=== PATIENT | female | born 1960 | race Hispanic/Latino ===

== ENCOUNTER 2018-10-01 08:27 | Outpatient (CLI) | payer BC, OTHER ==
--- NOTE | 2018-10-02 11:47 | Magnetic Resonance Report ---
BILATERAL BREAST MR WITHOUT AND WITH GADOLINIUM INDICATION: High risk for breast cancer. COMPARISONS: 01/07/2018 mammogram TECHNIQUE: Axial 1.0 mm T1 without, axial high-resolution 2.0 mm T2 and axial 1.0 mm dynamic vibrant high-resolution postcontrast T1 fat saturation sequences on a 1.5 [place] magnet. The examination was p erformed with an 8-channel dedicated [place] breast coil. Post-processing with CAD and subtraction was performed on an [employer] workstation. 14.0 cc of MultiHance was injected without incident for the c ontrast portion of the exam. Consent was obtained prior to the administration of the contrast. FINDINGS: RIGHT BREAST:The right breast is smaller than the left. Minimal background parenchymal enhancement. No mass or suspicious enhancement. No suspicious lymph nodes. LEFT BREAST: Minimal background parenchymal enhancement. No mass or suspicious enhancement. No suspic ious lymph nodes. IMPRESSION: Negative study. Recommend routine screening mammography. BI-RADS Category 1 Negative Signer Name: Bret Garcia MD Signed: 10/02/2018 11:42 AM Workstation Name: [id number]
== END 2018-10-01 08:28 | disposition home or self-care (01) ==
LOC: SPVIMAG 08:27
PROVIDERS: ATTEND Surgery
DX: R92.2 Inconclusive mammogram (principal); Z80.41 Family history of malignant neoplasm of ovary; Z80.3 Family history of malignant neoplasm of breast
CPT/HCPCS: A9577; C8908; 77049